=== PATIENT | female | born 1965 | race Caucasian/White ===

== ENCOUNTER 2016-04-29 15:19 | Outpatient (CLI) | payer BC ==
[~2016-04-29 15:19] MED LIST: ARIMIDEX1 MG PO; BACTRIM DS 8001 TA1 PO; CEPHALEXIN500 MG PO; EMEND PO; FUROSEMIDE 20MG20 MG PO; LASIX 20MG. TAB20 MG PO; LORTAB 5/3251 TAB PO; PROMETHAZINE HC25 M1 PO; SYNTHROID0.088 MG PO; VITAMIN D31000 IU PO; Xanax0.25 MG PO; ZOFRAN ODT4 MG PO
[2016-05-26] MEDS ORDERED: DULOXETINE 30MG30 MG PO (09:56)
[2016-06-15] MEDS ORDERED: DULOXETINE 30MG30 MG FT (08:46)
[2016-07-20] MEDS ORDERED: ZANTAC 150150 MG PO (09:57)
[2016-07-20] MEDS ORDERED: POTASSIUM CHLO20 ME2 PO (09:58)
== END 2016-04-29 15:50 | disposition home or self-care (01) ==
LOC: COP 15:19
DX: C50.912 Malignant neoplasm of unspecified site of left female breast (principal); Z45.2 Encounter for adjustment and management of vascular access device
CPT/HCPCS: J1642

== ENCOUNTER 2016-08-17 12:05 | Outpatient (CLI) | payer BC ==
[~2016-08-17] VITALS: Ht 154.9 cm; Wt 84.8 kg
[~2016-08-17 12:05] MED LIST changes: +DULOXETINE 30MG30 MG FT; +DULOXETINE 30MG30 MG PO; +POTASSIUM CHLO20 ME2 PO; +ZANTAC 150150 MG PO
[2016-08-17 12:25] LABS: HEMOGLOBIN 12.8 g/dL (12.2-16.2); LYMPH # 1.5 K/mm3 (0.7-4.5); LYMPH % 19.3 % (10-50.0)
[2016-08-17 13:15] VITALS: BP 126/63
[2016-08-17 13:30] VITALS: BP 120/68
[2016-08-17 13:45] VITALS: BP 116/69
[2016-08-17 14:00] VITALS: BP 116/71
[2016-08-17 14:15] VITALS: BP 106/68
[2016-08-17 14:30] VITALS: BP 118/64
== END 2016-08-17 14:50 | disposition home or self-care (01) ==
LOC: COP 12:05
PROVIDERS: Internal Medicine
DX: C50.912 Malignant neoplasm of unspecified site of left female breast (principal); Z17.0 Estrogen receptor positive status [ER+]
CPT/HCPCS: J1642; J9267; Q0166

== ENCOUNTER 2016-08-24 12:11 | Outpatient (CLI) | payer BC ==
[2016-08-24] VITALS (8 sets, daily range): BP systolic 116–124; BP diastolic 60–68
[~2016-08-24] VITALS: Ht 154.9 cm; Wt 82.6 kg
[2016-08-24 12:36] LABS: LYMPH % 36.2 % (10-50.0)
[2016-08-24 13:15] LABS: NEUTROPHILS 45 % (42-76)
== END 2016-08-24 15:40 | disposition home or self-care (01) ==
LOC: COP 12:11
PROVIDERS: Internal Medicine
DX: C50.912 Malignant neoplasm of unspecified site of left female breast (principal); Z17.0 Estrogen receptor positive status [ER+]
CPT/HCPCS: J1642; J9267; Q0166

== ENCOUNTER 2016-08-31 08:50 | Outpatient (CLI) | payer BC ==
[2016-08-31] VITALS (13 sets, daily range): BP systolic 97–152; BP diastolic 58–76
[2016-08-31 09:51] LABS: HEMOGLOBIN 12.2 g/dL (12.2-16.2); LYMPH # 0.4 K/mm3 (0.7-4.5); LYMPH % 9.4 % (10-50.0)
[2016-08-31 09:52] LABS: URINE BLOOD 3+ (NEG)
[2016-08-31 09:58] LABS: BUN 17 mg/dL (7-18)
[2016-08-31 10:00] LABS: GFR (ESTIMATED) 66 ML/MIN (59-)
[2016-08-31 10:23] LABS: URINE BILIRUBIN - DIPSTICK NEGATIVE (NEG)
[2016-08-31 10:54] LABS: NEUTROPHILS 68 % (42-76)
--- NOTE | 2016-08-31 11:14 | CONSULT NOTE ---
Oncology Clinic F/Up Visit History of present illness: History is in the plan Home medications: Reported Medications Alprazolam (Xanax) 0.25 MG PO TIDP PRN RESTLESSNESS Furosemide (Furosemide) 20 MG PO BID Duloxetine Hcl (Duloxetine 30MG Capsule) 60 MG PO DAILY Ranitidine Hcl (Zantac) 150 MG PO BID POTASSIUM CHL (Potassium Chloride) 20 MEQ PO DAILY Ondansetron (Zofran 4MG Odt) 4 MG PO Q6HP PRN NAUSEA AND VOMITING PROMETHAZINE HCL (Promethazine 25mg Tab) 25 MG PO Q4HP PRN N/V Allergies: Coded Allergies: succinylcholine (Severe, "CAN'T METABOLIZE DRUG", COULDN'T WAKE UP-ON VENT FOR 3 DAYS 03/17/16) adhesive tape (Intermediate, I-RASH/BLISTERING OF SKIN (TRANSPORE TAPE) 03/17/16 ) codeine (Mild, -- 03/17/16) Vital signs/Labs: Weight -LB: OZ: KG: Method:Floor Scales Height -FT:5 IN:1 CM: BMI: Laboratory Tests 08/31/16 0900: Sodium 139, Potassium 2.9 *L, Chloride 104, Carbon Dioxide 24, BUN 17, Creatinine 0.9, Estimated GFR (MDRD) 66, Glucose 130 H, Calcium 8.2 L, Total Bilirubin 1.1 H, AST 19, ALT 69, Alkaline Phosphatase 102, Total Protein 7.1, Albumin 3.4, Globulin 3.7 H, Albumin/Globulin Ratio 0.9 L, WBC 4.4 L, RBC 4.01 L, Hgb 12.2, Hct 36.6 L, MCV 91.1, RDW 16.2, Plt Count 222, MPV 6.1 L, Gran % 87.6 H, Gran # 3.8, Total Counted 100, Lymphocytes % 9.4 L, Monocytes % 2.3, Eosinophils % 0.1, Basophils % 0.6, Neutrophils 68, Band Neutrophils 12 H, Lymphocytes (Manual) 17, Lymphocytes # 0.4 L, Monocytes (Manual) 3, Monocytes # 0.1, Eosinophils # 0.0, Basophils # 0.0, Platelet Estimate NORMAL, PUBS MCHC 33.5, MCH 30.5, Urine Color YELLOW, Urine Appearance CLOUDY, Urine pH 6.0, Ur Specific [place] 1.025, Urine Protein 1+ H, Urine Ketones NEGATIVE, Urine Blood 3+ H, Urine Nitrate NEGATIVE, Urine Bilirubin NEGATIVE, Urine Urobilinogen 0.2, Ur Leukocyte Esterase TRACE H, Urine RBC 5-10, Urine WBC 3-5, Ur Squamous Epith Cells 3-5, Urine Bacteria 4+, Urine Glucose NEGATIVE Microbiology Date/Time Procedure - Status Source Growth 08/31 0900 Urine Culture - RECD URINE CC Exam: Skin: normal exam, rash, rashes on her face and anterior chest area macular papules and crusting. Assessment Discussion/Summary: 51-year-old woman with ER/CA positive breast cancer finished radiation and had a remarkable. She still however to take the Taxol for 12 weeks. She had just completed her 10th week began having severe abdominal vomiting and diarrhea and fever. He was admitted to the outpatient department for IV fluids she's had a great deal of nausea or vomiting OR diarrhea. Skin rash that she has has been present ever since she started on the Taxol. He was not orthostatic we measured it. I saw him in clinic after she received 1 L of fluid she was feeling much better. Her potassium was reported at 2.9-40 mEq by mouth and 20 IV. at [id number]
== END 2016-08-31 14:00 | disposition home or self-care (01) ==
LOC: COP 08:50
PROVIDERS: Internal Medicine
DX: C50.912 Malignant neoplasm of unspecified site of left female breast (principal); Z17.0 Estrogen receptor positive status [ER+]
CPT/HCPCS: J1642

== ENCOUNTER 2016-09-01 12:20 | Outpatient (CLI) | payer BC ==
[2016-09-01 12:45] VITALS: BP 145/76
[2016-09-01 13:15] VITALS: BP 139/87
[2016-09-01 13:45] VITALS: BP 129/77
== END 2016-09-01 14:00 | disposition home or self-care (01) ==
LOC: COP 12:20
DX: C50.912 Malignant neoplasm of unspecified site of left female breast (principal); Z17.0 Estrogen receptor positive status [ER+]
CPT/HCPCS: J1642

== ENCOUNTER 2016-12-29 08:00 | Outpatient (CLI) | payer BC | END 2016-12-29 08:20 | disposition home or self-care (01) | LOC: COP 08:00 | DX: C50.912 Malignant neoplasm of unspecified site of left female breast (principal); Z45.2 Encounter for adjustment and management of vascular access device ==

== ENCOUNTER 2017-01-23 08:30 | Outpatient (CLI) | payer BC | END 2017-01-23 09:00 | disposition home or self-care (01) | LOC: COP 08:30 | DX: C50.912 Malignant neoplasm of unspecified site of left female breast (principal); Z45.2 Encounter for adjustment and management of vascular access device ==

== ENCOUNTER 2017-03-07 09:16 | Outpatient (CLI) | payer BC ==
[2017-03-07 08:52] LABS: HEMOGLOBIN 13.3 g/dL (12.2-16.2); LYMPH # 1.5 K/mm3 (0.7-4.5); LYMPH % 27.2 % (10-50.0)
[2017-03-07 09:04] LABS: BUN 9 mg/dL (7-18)
[2017-03-07 09:07] LABS: GFR (ESTIMATED) 88 ML/MIN (59-)
--- NOTE | 2017-03-08 09:27 | RADIOLOGY REPORT PS360 ---
CT CHEST W/ CONTRAST INDICATION: Follow-up breast cancer, special attention to the azygos node BREAST CA ORDERING PHYSICIAN: Alhaji Alva MD PATIENT AGE: 51 years COMPARISON: 09/19/2016 TECHNIQUE: Axial images are obtained with contrast. Sagittal and coronal reformatted images are reviewed as well. FINDINGS: No mediastinal or hilar mass or adenopathy evident. The vaguely, there is no evidence of adenopathy in the azygos region. There is a small precarinal lymph node with fatty's central hilum. This node measures 7 mm and is unchanged. There are postsurgical changes of the left breast density in the cutaneous region and central aspect of the left breast consistent with postsurgical scarring and radiation changes. The increased density of the left breast is less so on today's exam when compared to previous study. There are mild atelectatic/fibrotic changes in the lung bases. No suspicious pulmonary nodules. No infiltrates or effusions. There is a right subclavian Mediport catheter the tip in region of SVC. No evidence of aortic aneurysm. No obvious destructive bony process. IMPRESSION: 1. Stable CT appearance of the chest with no convincing evidence of metastatic disease. 2. Persistent but improving density within the left breast and subcutaneous region consistent with postsurgical/radiation changes. 3. No evidence of adenopathy. Specifically, no evidence of adenopathy within the azygos chain IMPRESSION:
--- NOTE | 2017-03-08 09:38 | RADIOLOGY REPORT PS360 ---
CT ABD PELVIS W/ CONTRAST CLINICAL INDICATION: Attention to azygos/hemiazygos nodes BREAST CA ORDERING PHYSICIAN: Alhaji Alva MD PATIENT AGE: 51 years COMPARISON: 09/19/2016 TECHNIQUE: Axial images obtained with sagittal and coronal reformats. PROCEDURE: Oral Contrast: Redicat IV Contrast: 75 mL's of Isovue-370 performed in conjunction with the chest CT. FINDINGS: There is diffuse hepatic steatosis. No focal liver lesion is evident. The spleen, adrenal glands, and pancreas are unremarkable. There is a small hemiazygos lymph node once again noted along the left aspect of the distal esophagus. This is not changed compared to the previous exam with a fatty hilum to the node. There is been a prior cholecystectomy. No renal mass or hydronephrosis. There are scattered small lymph nodes in the retroperitoneum or these however are small and unchanged. No intestinal obstruction or free air is evident. There is been a prior hysterectomy. No evidence of diverticulitis or appendicitis. No lytic or blastic bony abnormalities. IMPRESSION: 1. Overall stable CT appearance of the abdomen and pelvis with no convincing evidence of metastatic disease. 2. No change in the small in the azygos lymph node. 3. Hepatic steatosis
== END 2017-03-07 11:20 | disposition home or self-care (01) ==
LOC: COP 09:16 → RAD 03-10 09:45
PROVIDERS: Internal Medicine
DX: C50.919 Malignant neoplasm of unspecified site of unspecified female breast (principal)
CPT/HCPCS: J1642; Q9967